=== PATIENT | female | born 1965 | race Caucasian/White ===

== ENCOUNTER 2018-03-21 22:15 | Emergency (ER) | payer OTHER ==
[2018-03-21] MEDS ORDERED: LEVOFLOXACIN 750MG/150ML D5W 750 MG/150 ML BAG IV STA (23:15)
[2018-03-21] MEDS ORDERED: TYLENOL 325 MG PO STA (23:15)
[2018-03-21] MEDS ORDERED: Sodium Chloride 0.9% 1000 ML 1,000 ML IV STA ×2 (23:15→23:17)
[2018-03-21] MEDS ORDERED: Sodium Chloride 0.9% 1000 ML 2,000 ML ONE (23:18)
[2018-03-21] MEDS ORDERED: TYLENOL 325 MG ONE (23:19)
[2018-03-21] MEDS ORDERED: LEVOFLOXACIN 750MG/150ML D5W 750 MG/150 ML BAG IV ONE (23:21)
[2018-03-21] MEDS: Sodium Chloride 0.9% 1000 ML 1,000 ML IV SCH (23:24)
[2018-03-21 23:31] LABS: Granulocyte Absolute (ANC) 5.38 (1.4-6.9); Hematocrit 33.8 % (35-47); Hemoglobin 11.1 gm/dl (12.0-16.0); Mean Cell Volume 89.7 fl (78-100); Mean Corpuscular Hemoglobin 29.4 pg (26-32); Mean Corpuscular Hgb Concent. 32.8 g/dl (32-36); Mean Platelet Volume 10.1 fl (6-9.5); Platelet Count 298 K/mm3 (150-450); Red Blood Count 3.77 M/mm3 (4.1-5.4); Red Cell Distribution Width 12.8 % (11.5-14.0); White Blood Count 6.2 K/mm3 (4.0-10.5)
[2018-03-21 23:45] LABS: ALBUMIN 4.4 g/dL (3.5-5.0); ANION GAP 15.3 MEQ/L (5-15); BILIRUBIN,TOTAL 0.5 mg/dL (0.2-1.3); Calcium 9.6 mg/dL (8.4-10.2); Creatinine 1 1.43 mg/dL (0.52-1.04); Potassium 3.8 mmol/L (3.5-5.1); Total Protein 7.3 g/dL (6.3-8.2)
[2018-03-22 00:03] LABS: BAND 17 % (0.0-2.0); Lymphocytes 9 % (24-44); Neutrophils 74 % (36.0-66.0); Platelet Estimate NORMAL (NORMAL); Total Cells Counted 100
[2018-03-22] MEDS ORDERED: Zofran 4 MG/2 ML VIAL IV ONE (00:05)
[2018-03-22] MEDS ORDERED: MORPHINE SULFATE 10 MG/ML IV ONE (00:05)
[2018-03-22 00:52] LABS: Appearance CLOUDY (CLEAR); Bacteria MODERATE /HPF (NEGATIVE); Bilirubin NEGATIVE (NEGATIVE); Blood 250 Ery/ul (0-5); Calcium Oxalate Crystals 25-50 /HPF (NEGATIVE); Epithelial Cells MODERATE /HPF (FEW); Glucose NEGATIVE (NEGATIVE); Ketones NEGATIVE (NEGATIVE); Leukocyte Esterase TRACE (NEGATIVE); Mucus MODERATE /HPF (NEGATIVE); Nitrite POSITIVE (NEGATIVE); Protein,Urine Dip 100 (Negative); RBC 15-25 /HPF (0-2); Urobilinogen NORMAL mg/dL (0-1); WBC 25-50 /HPF (0-5)
[2018-03-22] MEDS ORDERED: Sodium Chloride 0.9% 1000 ML 1,000 ML ONE (01:06)
[2018-03-22] MEDS ORDERED: Zofran 4 MG/2 ML VIAL ONE (01:06)
[2018-03-22] MEDS ORDERED: MORPHINE SULFATE 10 MG/ML ONE (01:06)
[2018-03-22 01:20] VITALS: BP 95/62; PULSE 107
[2018-03-22 01:22] VITALS: O2SAT 97
--- NOTE | 2018-03-22 01:22 | ERPHSYRPT ---
- History of Present Illness Time Seen by Provider: 03/21/18 23:00 Source: patient Exam Limitations: clinical condition Patient Subjective Stated Complaint: pt states she has been having back pain off and on for approx 1 week. states the past few days she has been h aving chills and increased pain. was seen by dr singh and has script for antibiotic for uti- has not filled script yet Triage Nursing Assessment: pt alert and oriented, answers questions approp. pt back per wheelchair, slow stooped gait noted. respirations nonlabored with lungs cta. abd soft and nontender with bowel sounds present. urine yellow and cloudy. skin hot, dry. Physician History: PATIENT WITH A HISTORY OF HYPERTENSION COMPLAINS OF INCREASING MID BACK PAIN AND FLANK PAINS OVER 2-3 DAYS. DIAGNOSED WITH URINARY TRACT INFECTION ON 2017. HAS ONSET OF FEVER AND CHILLS TODAY. Timing/Duration: day(s) Activites at Onset: none Quality: stabbing, throbbing Onset Location: left flank Pain Radiation: none Severity of Pain-Max: moderate Severity of Pain-Current: moderate Prior abdominal problems: none Sexual intercourse history: non-contributory Associated Symptoms: denies symptoms Allergies/Adverse Reactions: No Known Drug Allergies Allergy (Verified 03/21/18 23:01) Home Medications: Aspirin EC 81 mg [Ecotrin 81 mg] 81 mg PO DAILY 03/21/18 [History] Ergocalciferol (Vitamin D2) [Vitamin D2] 1.25 WEEKLY 03/21/18 [History] Furosemide 20 mg [Lasix 20 mg] 20 mg PO DAILY 03/21/18 [History] Hx Tetanus, Diphtheria Vaccination/Date Given: No Hx Influenza Vaccination/Date Given: No Hx Pneumococcal Vaccination/Date Given: No - Review of Systems Constitutional: Fever, Chills Eyes: No Symptoms Ears, Nose, & Throat: No Symptoms Respiratory: No Symptoms, No Cough, No Dyspnea Cardiac: No Symptoms, No Chest Pain, No Edema, No Syncope Abdominal/Gastrointestinal: No Symptoms, No Abdominal Pain, No Nausea, No Vomiting, No Diarrhea Genitourinary Symptoms: Flank Pain, No Dysuria Musculoskeletal: No Symptoms, No Back Pain, No Neck Pain Skin: No Rash Neurological: No Dizziness, No Focal Weakness, No Sensory Changes Psychological: No Symptoms Endocrine: No Symptoms All Other Systems: Reviewed and Negative - Past Medical History Pertinent Past Medical History: Yes Cardiac History: Hypertension - Past Surgical History Past Surgical History: Yes Gastrointestinal: Hernia Repair Female Surgical History: Tubal Ligation Other Surgical History: NOVA SURE PROCEDURE, partial thyroidectmoy - Social History Smoking Status: Never smoker Exposure to second hand smoke: No Drug Use: none Patient Lives Alone: No - Female History Hx Last Menstrual Period: post menpausal Hx Now: No - Nursing Vital Signs Nursing Vital Signs: Initial Vital Signs Temperature 102.7 F 03/21/18 22:51 Pulse Rate 120 H 03/21/18 22:51 Respiratory Rate 20 03/21/18 22:51 Blood Pressure 113/72 03/21/18 22:51 O2 Sat by Pulse Oximetry 97 03/21/18 22:51 Pain Scale Pain Intensity 5 - Physical Exam General Appearance: mild distress Eye Exam: PERRL/EOMI, eyes nml inspection Ears, Nose, Throat Exam: normal ENT inspection, TMs normal, pharynx normal, moist mucous membranes Neck Exam: normal inspection, non-tender, supple, full range of motion Respiratory Exam: normal breath sounds, lungs clear, No respiratory distress Cardiovascular Exam: regular rate/rhythm, normal heart sounds, normal peripheral pulses Gastrointestinal/Abdomen Exam: soft, normal bowel sounds, No tenderness, No mass Back Exam: normal inspection, normal range of motion, CVA tenderness (BILATERAL FLANK TENDERNESS), No vertebral tenderness Extremity Exam: normal inspection, normal range of motion, pelvis stable Neurologic Exam: alert, oriented x 3, cooperative, repairer hairspring II-XII nml as tested, normal mood/affect, sensation nml, No motor deficits Skin Exam: normal color, warm, dry Lymphatic Exam: No adenopathy SpO2: 97 Oxygen Delivery: Room Air - CT Exams Abdomen/Pelvis CT Interpretation: Tele-radiologist Report (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, THERE IS A PROXIMAL HYDROURETER WITH A 4MM CALCULUS AT THE UPJ ) Ordered Tests: Active Orders 24 hr Category Date Time Status Motorcoach Driver STAT Care 03/21/18 23:15 Active EKG-ER Only STAT Care 03/21/18 23:15 Active IV Insertion STAT Care 03/21/18 23:15 Active IV Insertion-2nd Peripheral STAT Care 03/21/18 23:15 Active Pulse Oximetry (ED) STAT Care 03/21/18 23:15 Active ABDOMEN AND PELVIS W/0 CONTRAS [CT] Stat Exams 03/21/18 23:17 Taken BLOOD CULTURE Stat Lab 03/21/18 23:27 Received CBC W DIFF Stat Lab 03/21/18 23:27 Completed CMP Stat Lab 03/21/18 23:27 Completed CULTURE,URINE Stat Lab 03/22/18 00:11 Received Lactic Acid Stat Lab 03/21/18 23:21 Completed Manual Differential NC Stat Lab 03/21/18 23:27 Completed TROPONIN Q3H Lab 03/21/18 23:15 Completed UA W/ MICROSCOPIC Stat Lab 03/22/18 00:11 Completed Medication Summary Discontinued Medications Generic Name Dose Route Start Last Admin Trade Name Freq PRN Reason Stop Dose Admin Acetaminophen 650 mg 03/21/18 23:15 03/21/18 23:22 Tylenol 325 Mg PO 03/21/18 23:16 650 mg STAT STA Administration Acetaminophen Confirm 03/21/18 23:19 Tylenol 325 Mg Administered 03/21/18 23:20 Dose 650 mg .ROUTE .STK-MED ONE Levofloxacin/Dextrose 750 mg in 150 mls @ 100 mls/hr 03/21/18 23:15 03/21/18 23:30 Levofloxacin 750mg/150ml D5w IV 03/22/18 00:44 100 ml/hr STAT STA 100 mls/hr Administration Sodium Chloride 1,000 mls @ 999 mls/hr 03/21/18 23:15 03/21/18 23:24 Sodium Chloride 0.9% 1000 Ml IV 03/22/18 02:15 999 mls/hr .Q1H1M ELVER Administration Sodium Chloride 1,000 mls @ 999 mls/hr 03/21/18 23:15 03/21/18 23:27 Sodium Chloride 0.9% 1000 Ml IV 03/22/18 00:15 999 mls/hr .Q1H1M STA Administration Sodium Chloride 1,000 mls @ 999 mls/hr 03/21/18 23:17 03/22/18 01:11 Sodium Chloride 0.9% 1000 Ml IV 03/22/18 00:17 999 mls/hr .Q1H1M STA Administration Levofloxacin/Dextrose Confirm 03/21/18 23:21 Levofloxacin 750mg/150ml D5w Administered 03/21/18 23:22 Dose 750 mg in 150 mls @ ud IV .STK-MED ONE Sodium Chloride Confirm 03/21/18 23:18 Sodium Chloride 0.9% 1000 Ml Administered 03/21/18 23:19 Dose 2,000 mls @ ud .ROUTE .STK-MED ONE Sodium Chloride Confirm 03/22/18 01:06 Sodium Chloride 0.9% 1000 Ml Administered 03/22/18 01:07 Dose 1,000 mls @ ud .ROUTE .STK-MED ONE Morphine Sulfate 6 mg 03/22/18 00:05 03/22/18 01:10 Morphine Sulfate 10 Mg/Ml IV 03/22/18 00:06 6 mg STAT ONE Administration Morphine Sulfate Confirm 03/22/18 01:06 Morphine Sulfate 10 Mg/Ml Administered 03/22/18 01:07 Dose 10 mg .ROUTE .STK-MED ONE Ondansetron HCl 4 mg 03/22/18 00:05 03/22/18 01:10 Zofran 4 Mg/2 Ml Vial IV 03/22/18 00:06 4 mg STAT ONE Administration Ondansetron HCl Confirm 03/22/18 01:06 Zofran 4 Mg/2 Ml Vial Administered 03/22/18 01:07 Dose 4 mg .ROUTE .STK-MED ONE Lab/Rad Data: Laboratory Result Diagrams 03/21/18 23:27 03/21/18 23:27 Laboratory Results 03/22/18 03/21/18 03/21/18 Range/Units 00:11 23:27 23:27 WBC 6.2 (4.0-10.5) K/mm3 RBC 3.77 L (4.1-5.4) M/mm3 Hgb 11.1 L (12.0-16.0) gm/dl Hct 33.8 L (35-47) % MCV 89.7 (78-100) fl MCH 29.4 (26-32) pg MCHC 32.8 (32-36) g/dl RDW 12.8 (11.5-14.0) % Plt Count 298 (150-450) K/mm3 MPV 10.1 H (6-9.5) fl Absolute Granulocytes 5.38 (1.4-6.9) Segmented Neutrophils 74 H (36.0-66.0) % Band Neutrophils 17 H (0.0-2.0) % Lymphocytes (Manual) 9 L (24-44) % Platelet Estimate NORMAL (NORMAL) RBC Morphology NORMAL Sodium 141 (137-145) mmol/L Potassium 3.8 (3.5-5.1) mmol/L Chloride 103 (98-107) mmol/L Carbon Dioxide 27 (22-30) mmol/L Anion Gap 15.3 H (5-15) MEQ/L BUN 20 H (7-17) mg/dL Creatinine 1.43 H (0.52-1.04) mg/dL Estimated GFR 40.8 ML/MIN Glucose 115 H (74-106) mg/dL Lactic Acid (0.4-2.0) Calcium 9.6 (8.4-10.2) mg/dL Total Bilirubin 0.50 (0.2-1.3) mg/dL AST 15 (14-36) U/L ALT 20 (0-35) U/L Alkaline Phosphatase 87 (38-126) U/L Troponin I (0.000-0.034) ng/mL Serum Total Protein 7.3 (6.3-8.2) g/dL Albumin 4.4 (3.5-5.0) g/dL Ur Collection Type VOID Urine Color YELLOW (YELLOW) Urine Appearance CLOUDY (CLEAR) Urine pH 6.0 (5-6) Ur Specific [place] 1.020 (1.005-1.025) Urine Protein 100 (Negative) Urine Ketones NEGATIVE (NEGATIVE) Urine Blood 250 (0-5) Michael/ul Urine Nitrite POSITIVE (NEGATIVE) Urine Bilirubin NEGATIVE (NEGATIVE) Urine Urobilinogen NORMAL (0-1) mg/dL Ur Leukocyte Esterase TRACE (NEGATIVE) Urine Microscopic RBC 15-25 (0-2) /HPF Urine Microscopic WBC 25-50 (0-5) /HPF Ur Epithelial Cells MODERATE (FEW) /HPF Calcium Oxalate Crystal 25-50 (NEGATIVE) /HPF Urine Bacteria MODERATE (NEGATIVE) /HPF Urine Mucus MODERATE (NEGATIVE) /HPF Urine Culture Reflexed YES (NO) Urine Glucose NEGATIVE (NEGATIVE) mg/dL 03/21/18 03/21/18 Range/Units 23:21 23:15 WBC (4.0-10.5) K/mm3 RBC (4.1-5.4) M/mm3 Hgb (12.0-16.0) gm/dl Hct (35-47) % MCV (78-100) fl MCH (26-32) pg MCHC (32-36) g/dl RDW (11.5-14.0) % Plt Count (150-450) K/mm3 MPV (6-9.5) fl Absolute Granulocytes (1.4-6.9) Segmented Neutrophils (36.0-66.0) % Band Neutrophils (0.0-2.0) % Lymphocytes (Manual) (24-44) % Platelet Estimate (NORMAL) RBC Morphology Sodium (137-145) mmol/L Potassium (3.5-5.1) mmol/L Chloride (98-107) mmol/L Carbon Dioxide (22-30) mmol/L Anion Gap (5-15) MEQ/L BUN (7-17) mg/dL Creatinine (0.52-1.04) mg/dL Estimated GFR ML/MIN Glucose (74-106) mg/dL Lactic Acid 1.6 (0.4-2.0) Calcium (8.4-10.2) mg/dL Total Bilirubin (0.2-1.3) mg/dL AST (14-36) U/L ALT (0-35) U/L Alkaline Phosphatase (38-126) U/L Troponin I < 0.012 (0.000-0.034) ng/mL Serum Total Protein (6.3-8.2) g/dL Albumin (3.5-5.0) g/dL Ur Collection Type Urine Color (YELLOW) Urine Appearance (CLEAR) Urine pH (5-6) Ur Specific [place] (1.005-1.025) Urine Protein (Negative) Urine Ketones (NEGATIVE) Urine Blood (0-5) Michael/ul Urine Nitrite (NEGATIVE) Urine Bilirubin (NEGATIVE) Urine Urobilinogen (0-1) mg/dL Ur Leukocyte Esterase (NEGATIVE) Urine Microscopic RBC (0-2) /HPF Urine Microscopic WBC (0-5) /HPF Ur Epithelial Cells (FEW) /HPF Calcium Oxalate Crystal (NEGATIVE) /HPF Urine Bacteria (NEGATIVE) /HPF Urine Mucus (NEGATIVE) /HPF Urine Culture Reflexed (NO) Urine Glucose (NEGATIVE) mg/dL - Progress Progress: improved Progress Note: 03/22/18 01:25 PLACED ON SEPSIS PROTOCOL NORMAL SALINE BOLUS X 2 LITERS, AFTER 2 SETS BLOOD CULTURES ADMINISTERED LEVAQUIN 750MG IVPLB, LACTIC ACID 1.6, TAKEN OFF SEPTIC PROTOCOL Discussed with Dr.: Other (DISCUSSED WITH DR KLEIN AT [facility] ER AT 0120 ACCEPTS TRANSFER VIA [facility]) Counseled pt/family regarding: diagnosis, need for follow-up - Departure Time of Disposition: 01:45 Departure Disposition: Transfer Clinical Impression: PROXIMAL LEFT URETER CALCULUS, INTRACTABLE ABDOMINAL PAIN Condition: Stable Critical Care Time: No Referrals: RACHEL MUNOZ [Primary Care Provider] -
--- NOTE | 2018-03-22 08:52 | XRAY ---
Indication: Left flank pain. Multiple contiguous axial images obtained through the abdomen and pelvis without contrast using renal stone protocol. Comparison: None Lung bases demonstrates mild bibasilar dependent atelectasis and tiny left base calcified granuloma. No infiltrate or effusion. Heart is not enlarged. Small hiatal hernia. 6 mm proximal left ureteral calculus, approximately L3 level. Proximal ureter is prominent and there is moderate hydronephrosis consistent with partial obstructive uropathy. No perinephric fluid. Additional numerous bilateral nephrocalcinosis. Noncontrasted stomach and bowel loops appear nonobstructed. Normal appendix. No free fluid/air. Borderline splenomegaly measuring 12.5 cm in greatest axial dimension. Remaining liver, gallbladder, pancreas, spleen, adrenal glands, bladder, uterus, and aorta appear unremarkable for noncontrast exam. There are scattered centimeter/subcentimeter periaortic nodes. Osseous structures intact. Impression: 1. 6 mm proximal left ureteral calculus producing obstructive uropathy as detailed. Additional bilateral nephrocalcinosis. 2. Borderline splenomegaly. 3. Nonspecific centimeter/subcentimeter periaortic nodes. 4. Small hiatal hernia. Comment: Preliminary interpretation was made by C. No discrepancy. CT DI 23.49
== END 2018-03-22 01:59 | disposition short-term general hospital (02) ==
LOC: ED 22:15
DX: N20.1 Calculus of ureter (principal); R10.9 Unspecified abdominal pain; Z79.82 Long term (current) use of aspirin; Z79.899 Other long term (current) drug therapy
CPT/HCPCS: 36000; 36415; 74176; 80053; 81001; 83605; 84484; 85025; 87040; 87077; 87086; 87186; 93005; 93041; 96360; 96361; 96365; 96374; 96375; 99285; J1956; J2270; J2405; A9270-GY

== ENCOUNTER 2021-09-09 06:07 | Day surgery (SDC) | payer BC ==
[2021-09-09] MEDS ORDERED: Lactated Ringers 1,000 ML IV SCH (06:30)
[2021-09-09] MEDS ORDERED: Versed 2 MG/2 ML Injection ONE (07:55)
[2021-09-09] MEDS ORDERED: DIPRIVAN 200 MG/20 ML IV ONE ×2 (07:55→08:13)
[2021-09-09 09:04] VITALS: O2SAT 100
[2021-09-09 09:23] VITALS: BP 130/80; PULSE 77
--- NOTE | 2021-09-09 10:31 | OP ---
SURGERY DATE/TIME: 09/09/2021 0800 PREOPERATIVE DIAGNOSIS: History of colon polyps and surveillance exam. POSTOPERATIVE DIAGNOSIS: Anal rectal lesion. PROCEDURE: Colonoscopy with cold forceps biopsy. SURGEON: Dr. Muñoz. ANESTHESIA: MAC. Medications given by anesthesia department. HISTORY: The patient is a 55-year-old white female presenting now for surveillance colonoscopy. She had a previous one six years ago that had several polyps removed. The patient was felt the need to have endoscopic evaluation. She was appraised of the risks of the procedure including the risk of perforation, phlebitis, untoward reaction to medication, bleeding and missed lesions. The patient verbalized her understanding and desired to have the procedure performed. DESCRIPTION OF PROCEDURE: The patient was given the medications by the anesthesia department. She had continuous pulse oximetry, ECG monitoring, intermittent blood pressure monitoring during the examination. She was placed in the left lateral decubitus position. A digital rectal examination was performed and revealed normal anal sphincter tone and no masses. The flexible Olympus pediatric colonoscope was used to intubate the rectum. A view of the colon was developed sequentially to the cecum. Upon insertion and withdrawal, including a retroflex view in the rectum was noted a lesion in the anal rectal area that was biopsied and destroyed using cold biopsy technique. The scope was removed from the patient who tolerated the procedure well and was sent back to OP recovery in good condition. The prep was noted to be fair.
== END 2021-09-09 09:38 | disposition home or self-care (01) ==
LOC: SDC 06:07
PROVIDERS: ATTEND Family Medicine
DX: Z09 Encounter for follow-up examination after completed treatment for conditions other than malignant neoplasm (principal); A63.0 Anogenital (venereal) warts; Z86.010 Personal history of colon polyps; K62.9 Disease of anus and rectum, unspecified
CPT/HCPCS: 88305; J2250; J2704

== ENCOUNTER 2024-01-18 06:14 | Day surgery (SDC) | payer BC ==
[2024-01-18] MEDS: Lactated Ringers 1,000 ML IV SCH (06:35)
[2024-01-18 06:44] VITALS: RESP 16
[2024-01-18] MEDS ORDERED: DIPRIVAN 200 MG/20 ML IV ONE ×2 (08:04→08:16)
[2024-01-18] MEDS ORDERED: Versed 2 MG/2 ML Injection ONE (08:04)
[2024-01-18] MEDS ORDERED: Xylocaine-Mpf 2% 5 Ml Vial ONE (08:05)
[2024-01-18 09:00] VITALS: O2SAT 100
[2024-01-18 09:07] VITALS: BP 118/68; PULSE 59; TEMP 97.3
--- NOTE | 2024-01-18 20:30 | OP ---
SURGERY DATE/TIME: 01/18/2024 [id number] PREOPERATIVE DIAGNOSIS: Screening exam. History of previous colon polyps. POSTOPERATIVE DIAGNOSIS: Normal colon. PROCEDURE: Colonoscopy. SURGEON: Scott Muñoz MD ANESTHESIA: Medication given by the anesthesia department. HISTORY: The patient is a 58-year-old white female presenting now for evaluation, previously having had polyps. The patient was apprised of the risks of the procedure including the risk of perforation, phlebitis, untoward reaction to medication, bleeding and missed lesions. The patient verbalized her understanding and desired to have the procedure performed. DESCRIPTION OF PROCEDURE AND FINDINGS: The patient was given medication by the anesthesia department. She had continuous pulse oximetry, ECG monitoring, and intermittent blood pressure monitoring during the examination. She was placed in the left lateral decubitus position. Digital rectal examination was performed and revealed external hemorrhoids. No masses were felt, and there was normal anal sphincter tone. The flexible Olympus GI colonoscope was used to intubate the rectum. A view of the colon was developed sequentially to the cecum. Upon insertion and withdrawal, including retroflexion in the rectum, no mucosal lesions were encountered. The scope was removed. The patient tolerated the procedure well and was sent back to outpatient recovery in good condition. The prep was noted to be fair to good.
== END 2024-01-18 09:20 | disposition home or self-care (01) ==
LOC: SDC 06:14
PROVIDERS: ATTEND Family Medicine
DX: Z12.11 Encounter for screening for malignant neoplasm of colon (principal); Z09 Encounter for follow-up examination after completed treatment for conditions other than malignant neoplasm; Z86.010 Personal history of colon polyps; K64.4 Residual hemorrhoidal skin tags
CPT/HCPCS: J2250; J2704